=== PATIENT | female | born 1955 | race Caucasian/White ===

== ENCOUNTER 2019-10-03 16:09 | Emergency (ER) | payer OTHER, SELFPAY ==
[~2019-10-03] VITALS: Ht 157.5 cm; Wt 83.9 kg
--- NOTE | 2019-10-03 16:10 | NUR ---
BIBA TO BED 7.
[2019-10-03] MEDS ORDERED: HALOPERIDOL IM 5 MG/ML VIAL IM ONE ×2 (16:25→19:45)
[2019-10-03] MEDS ORDERED: LORazepam 2 MG/ML VIAL IM ONE (16:25)
--- NOTE | 2019-10-03 16:30 | NUR ---
DR MONTEJO AT BEDSIDE EVALUATING PT.
--- NOTE | 2019-10-03 16:40 | NUR ---
64/F ROSE FROM [facility] FOR BEING VERBALLY AGGRESSIVE AND NOT TAKING MEDS PER FACILITY STAFF. PT STATES HER CC IS BL LEG WEAKNESS. PT ARRIVES REFUSING TO BE SEEN HERE, ASKING IF SHE CAN BE DROPPED OFF AT BUS STOP. PT REFUSING TO HAVE VITALS TAKEN. HX- ANEMIA, ALCOHOLIC LIVER DISEASE, HEPATIC FAILURE, GERD, CKD
[2019-10-03] MEDS ORDERED: ACETAMINOPHEN 650 MG SUPP RC ONE (17:00)
--- NOTE | 2019-10-03 17:02 | NUR ---
PT HOOK TO PAPER CUTTER OPERATOR , V/S STABLE OXYGEN SATURATION AT 99 PERCINT.
[2019-10-03 17:31] LABS: BASOPHILS # (AUTO) 0.1 K/uL (0.00-0.22); BASOPHILS % (AUTO) 0.9 % (0.0-2.0); EOSINOPHILS # (AUTO) 0.1 K/uL (0-0.4); EOSINOPHILS % (AUTO) 0.9 % (0.0-4.0); HEMATOCRIT 25.8 % (36-48); HEMOGLOBIN 8.4 g/dL (12.0-16.0); LYMPHOCYTES % (AUTO) 13.5 % (20.5-51.1); MEAN CORPUSCULAR HEMOGLOBIN 31 pg (27-31); MEAN CORPUSCULAR HGB CONC 33 g/dL (33-37); MEAN CORPUSCULAR VOLUME 96.4 fL (80-94); MONOCYTES % (AUTO) 6.8 % (1.7-9.3); NEUTROPHILS # (AUTO) 11.5 K/uL (1.8-7.7); NEUTROPHILS % (AUTO) 77.9 % (42.2-75.2); PLATELET COUNT (AUTO) 216 K/uL (140-450); RED BLOOD CELL COUNT(AUTO) 2.68 MIL/uL (4.20-5.40); RED CELL DISTRIBUTION WIDTH 18.9 % (11.6-13.7); WHITE BLOOD COUNT (AUTO) 14.8 K/uL (4.8-10.8)
--- NOTE | 2019-10-03 17:32 | NUR ---
DR MONTEJO HOLD URINALYSIS VERBAL ORDER.
[2019-10-03] MEDS ORDERED: NACL 0.9% 1,000 ML IV ONE (17:35)
[2019-10-03] MEDS ORDERED: LORazepam 2 MG/ML VIAL IVP ONE (17:35)
[2019-10-03] MEDS ORDERED: diphenhydrAMINE 50 MG/ML VIAL IVP ONE (17:35)
--- NOTE | 2019-10-03 17:46 | NUR ---
STRAIGHT CATH IN AND OUT JUSTEN GONZALEZ INSERTED CATHETER
--- NOTE | 2019-10-03 17:46 | NUR ---
JUSTEN GONZALEZ INSERTED STRAIGHT CATHETER JUSTEN HARRIS AND JOSE AT BEDSIDE.
[2019-10-03 17:55] LABS: ANION GAP 13.7 (8-16); CARBON DIOXIDE 25.1 mmol/L (21-32); PROTHROMBIN TIME 12.1 secs (10.8-13.4); TOTAL BILIRUBIN 1.4 mg/dL (0.0-1.0)
[2019-10-03 18:03] LABS: ACETAMINOPHEN < 0.5 ug/ml (10-30); SALICYLATE < 2.8 mg/dL (2.8-20.0)
[2019-10-03 18:05] LABS: POTASSIUM 2.8 mmol/L (3.5-5.1)
[2019-10-03] MEDS ORDERED: KCL 20 MEQ/WATER INJ PREMIX 200 ML IV ONE (18:05)
[2019-10-03 18:11] LABS: APPEARANCE,URINE SL CLOUDY (CLEAR); BILIRUBIN,URINE 1+ (NEGATIVE); BLOOD, URINE 2+ (NEGATIVE); COLOR,URINE DARK YELLOW (YELLOW); LEUKOCYTE ESTERASE ,URINE NEGATIVE (NEGATIVE); NITRITE, URINE NEGATIVE (NEGATIVE); PH,URINE 5.5 (5.0-9.0); UGLUCOSE NEGATIVE (NEGATIVE)
--- NOTE | 2019-10-03 18:11 | NUR ---
DR MONTEJO VERBAL ORDER HOLD O2 INHALATION ,PT SAT AT 97 PERCINT.
[2019-10-03 18:26] LABS: CANNABINOID, URINE POSITIVE ng/mL (NEG <=50)
[2019-10-03 18:27] LABS: BARBITURATE, URINE NEGATIVE ng/ml (NEG <=200); BENZODIAZEPINE, URINE POSITIVE ng/mL (NEG <=200); COCAINE, URINE NEGATIVE ng/mL (NEG <=300); OPIATE, URINE NEGATIVE ng/mL (NEG <=2000); PHENCYCLIDINE SCREEN,URINE NEGATIVE ng/mL (NEG <=25)
--- NOTE | 2019-10-03 18:27 | NUR ---
PT TO CT SCAN VIA GURNEY WITH STABLE V/S.
[2019-10-03] MEDS ORDERED: ACET-2619 PO (18:32)
[2019-10-03] MEDS ORDERED: cefTRIAXone 1,000 MG VIAL ONE (18:33)
[2019-10-03] MEDS ORDERED: FOLI1TAB90 PO (18:33)
[2019-10-03] MEDS ORDERED: MULT-2253 PO (18:34)
[2019-10-03] MEDS ORDERED: HYDR-5122 PO (18:35)
[2019-10-03] MEDS ORDERED: PANT40EC PO (18:36)
[2019-10-03] MEDS ORDERED: [UNRECOGNIZED DRUG - CODE] IV (18:36)
[2019-10-03] MEDS ORDERED: ONDA4TAB PO (18:37)
--- NOTE | 2019-10-03 18:40 | NUR ---
PT BACK FROM CT SCAN VIA ANEESH
[2019-10-03 18:41] LABS: WBC,URINE 0-5 /HPF (0-5)
--- NOTE | 2019-10-03 18:57 | NUR ---
PT COMFORTABLE IN BED SIDE RAILS UP X1 AND LOCK TO LOWEST POSITION . STABLE V/S .RN LISA INSERTED IV GAUGE 20 AT LEFT HAND.
[2019-10-03 18:58] LABS: YEAST,URINE Few /HPF (None Seen)
--- NOTE | 2019-10-03 18:59 | NUR ---
RONALD SADLER AT BEDSIDE DOIN EKG
--- NOTE | 2019-10-03 19:09 | NUR ---
GAVE REPORT TO JUSTEN ENCINAS PT COMFORTABLE IN BED SLEEPING SIDE RAILS UP X1 AND LOCK AT LOWEST POSITION.
--- NOTE | 2019-10-03 19:09 | NUR ---
REPORT RECEIVED FROM JOHNNY RN FOR CONTINUITY OF CARE PT A&OX2. POTASSIUM CURRENTLY INFUSING. VSS. WILL CONTINUE TO MONITOR.
--- NOTE | 2019-10-03 20:02 | NUR ---
Dr. Khan examining patient.
--- NOTE | 2019-10-03 22:20 | NUR ---
PT IS RESTLESS. RESPIRATIONS EVEN AND UNLABORED. CHEST RISE IS SYMMETRICAL. VSS. WILL CONTINUE TO MONITOR.
--- NOTE | 2019-10-03 22:45 | NUR ---
KENNA ANTIBODY SWAB DONE AND SENT TO LAB
--- NOTE | 2019-10-03 23:46 | NUR ---
SPOKE WITH MATTI SANABRIA, PT TESTED NEG COVID ANTIBODY. PT WILL GO TO ROOM 15 AT [facility]. Addendum: 10/04/19 at 0706 by [email or web address] SPOKE WITH SARINA CAMPUZANO DIRECTOR AND MARISABEL CAMPUZANO.
--- NOTE | 2019-10-03 23:46 | NUR ---
SPOKE WITH ROGERS CAMPUZANO . PT WILL BE ACCEPTED AT [facility] AND GO TO ROOM 15.
--- NOTE | 2019-10-04 00:18 | NUR ---
AMBULANCE SENIOR WEALTH ADVISOR ETA 1100 AM
--- NOTE | 2019-10-04 02:00 | NUR ---
PT RESTING IN BED, EYES CLOSED, RESPIRATIONS EVEN AND UNLABORED. VSS. CHEST RISE IS SYMMETRICAL. WILL CONTINUE TO MONITOR
--- NOTE | 2019-10-04 04:50 | NUR ---
PT RESTING IN BED, EYES CLOSED, RESPIRATIONS EVEN AND UNLABORED. VSS. CHEST RISE IS SYMMETRICAL. WILL CONTINUE TO MONITOR
--- NOTE | 2019-10-04 06:48 | NUR ---
PT RESTING IN BED, EYES CLOSED, RESPIRATIONS EVEN AND UNLABORED. VSS. CHEST RISE IS SYMMETRICAL. WILL CONTINUE TO MONITOR
--- NOTE | 2019-10-04 07:19 | NUR ---
REPORT GIVEN TO JOHNNY CAMPUZANO FOR CONTINUITY OF CARE
--- NOTE | 2019-10-04 07:28 | NUR ---
received report from dona malik pt sleeping comfortably in bed side rails up x2 and lock at lowest position , v/s stable , [facility] informed and aware pt is going back to them ,awaiting transport at 11am eta.
--- NOTE | 2019-10-04 08:51 | NUR ---
PT SLEEPING COMFORTABLY IN BED , EYES CLOSE , VISIBLE CHEST EXPANSION , SIDE RAILS UP X2 AND LOCK AT LOWEST POSITION , WITH STABLE V/S.
--- NOTE | 2019-10-04 10:13 | NUR ---
GAVE BREAKFAST TRAY PT STILL SLEEPING EYES CLOSE.
[2019-10-04 11:21] VITALS: BP 142/82
--- NOTE | 2019-10-04 11:21 | NUR ---
Patient discharged with v/s stable. Written and verbal after care instructions given and explained. Patient verbalized understanding. Carried with to detention. All questions addressed prior to discharge. Advised to follow up with PMD. Gave report to
--- NOTE | 2019-10-04 11:30 | NUR ---
CALLED MATTI SANABRIA SPOKE TO JUAN PT IS BEING TRANSPORTED BACK TO FACILITY.
--- NOTE | 2019-10-04 11:34 | NUR ---
JUSTEN GRECO INFORMED AND AWARE REGARDING SITUATION .
== END 2019-10-04 11:21 ==
LOC: MED 16:09
DX: R45.1 Restlessness and agitation (principal); D72.829 Elevated white blood cell count, unspecified; E87.6 Hypokalemia; K21.9 Gastro-esophageal reflux disease without esophagitis; Z79.899 Other long term (current) drug therapy
CPT/HCPCS: 36415; 70450; 71045; 80053; 80305; 81001; 82140; 82550; 82553; 83605; 83880; 84484; 85025; 85610; 85730; 87040; 87086; 87426; 93005; 96365; 96366; 96368; 96372; 96375; 99285; G0480; G0482; J0696; J1200; J1630; J2060; J3480; J7030